=== PATIENT | female | born 1990 | race African-American/Black ===

== ENCOUNTER 2024-05-14 22:12 | Emergency (ER) | payer SELFPAY ==
[~2024-05-14] VITALS: Ht 172.7 cm; Wt 110.0 kg
[2024-05-14 22:16] VITALS: TEMP 98.3
[2024-05-14] MEDS ORDERED: fentaNYL 50 MCG/ML 2 ML VIAL IV ONE (22:45)
[2024-05-14 22:54] LABS: BASO # 0.1 K/mm3 (0.0-0.2); BASO % 0.3 % (0.0-2.0); EOS # 0.1 K/mm3 (0.0-0.7); EOS % 0.9 % (0.0-4.0); GRAN # 10.5 K/mm3 (1.4-6.5); GRAN % 69.7 % (42.2-75.2); HEMOGLOBIN 11.2 g/dl (12.5-16.0); LYMPH # 3.3 K/mm3 (1.2-3.4); LYMPH % 21.6 % (20.0-51.0); MEAN CELL VOLUME 74 fl (80.0-100.0); MEAN CORPUSCULAR HEMOGLOBIN 24 pg (27-31); MEAN CORPUSCULAR HGB CONC 32 g/dl (33.0-37.0); MONO # 1.1 K/mm3 (0.1-0.6); MONO % 7.2 % (1.7-9.3); PLATELET COUNT 425 K/mm3 (130-400); RED BLOOD COUNT 4.69 M/mm3 (4.10-5.30); REDCELL DISTRIBUTION WIDTH-CV 17.9 % (11.5-14.5)
[2024-05-14 22:56] LABS: HEMATOCRIT 34.9 % (37.0-47.0)
[2024-05-14 23:11] LABS: ALBUMIN 4.1 g/dL (3.5-5.0); BILIRUBIN,TOTAL 0.4 mg/dL (0.2-1.2); CALCIUM 9.6 mg/dL (8.4-10.2); CREATININE, serum 1.19 mg/dL (0.57-1.11); POTASSIUM 3.7 mEq/L (3.5-4.5); TOTAL PROTEIN 8.3 g/dl (6.2-8.1)
[2024-05-14] MEDS ORDERED: NS 1,000 ML IV ONE (23:45)
[2024-05-14] MEDS ORDERED: Morphine 4 MG/ML VIAL IV ONE (23:45)
[2024-05-15] MEDS ORDERED: Home HYDROcodone/Acetaminophen 5/325 MG #4 TABS/PACK PO ONE (01:45)
[2024-05-15 02:13] VITALS: BP 130/81; PULSE 80
== END 2024-05-15 02:13 | disposition home or self-care (01) ==
LOC: COL.ER 22:12
PROVIDERS: Emergency Medicine
DX: M25.571 Pain in right ankle and joints of right foot (principal); M25.561 Pain in right knee; V13.4XXA Pedal cycle driver injured in collision with car, pick-up truck or van in traffic accident, initial encounter; Y93.55 Activity, bike riding; Y92.410 Unspecified street and highway as the place of occurrence of the external cause
CPT/HCPCS: J2270; J3010; J7030